=== PATIENT | male | born 1975 | race Two or more races ===

== ENCOUNTER 2016-03-24 19:06 | Emergency (ER) | payer OTHER ==
[2016-03-24 19:29] VITALS: BP 129/79; PULSE 100; TEMP 99.4; BMI 36.1
[2016-03-24] MEDS ORDERED: ALBUTEROL SO4 0.083% IH SOL 2.5 MG/3 ML VIAL.NEB. NEB ONE ×2 (19:58→20:16)
[2016-03-24] MEDS ORDERED: predniSONE 20 MG TABLET (UD) PO ONE (19:58)
[2016-03-24] MEDS ORDERED: AZITHROMYCIN 250 MG TABLET (FP) PO ONE (19:58)
[2016-03-24] MEDS ORDERED: IPRATROPIUM BR 0.02% 0.5 MG/2.5 ML VIAL.NEB. NEB ONE ×2 (19:58→20:17)
--- NOTE | 2016-03-24 20:11 | PDOC ---
History of Present Illness - General History Source: Patient Exam Limitations: No Limitations <Adrián Barrett - Last Filed: 03/24/16 20:11> - General History Source: Patient Exam Limitations: No Limitations - History of Present Illness Initial Comments: 03/24/16 20:18 The patient is a 41 year old male, with a significant past medical history of asthma, who presents to the emergency department with a productive cough for the past week. The patient reports that he is coughing up yellow sputum. He additionally reports episodes of vomiting, which only occur after coughing fits. The patient additionally reports some mild intermittent wheezing. The patient denies fever, chills, sore throat, any recent illnesses, shortness of breath or chest pain. The patient denies any sick contacts or recent travel. Allergies: Penicillins, Fish derived. Past Surgical History: None reported. Social History: Current everyday smoker (10 cigarettes/day). Prior history of polysubstance abuse. On Methadone. PCP: Dr. Renteria <Blanche Reis - Last Filed: 03/24/16 20:20> - General Chief Complaint: Cold Symptoms Stated Complaint: COUGH/HEADACHE Time Seen by Provider: 03/24/16 19:46 Past History - Past Medical History Asthma: Yes Diabetes: No Psychiatric Problems: Yes - Psycho/Social/Smoking Cessation Hx Suicidal Ideation: No Smoking History: Current every day smoker Have you smoked in the past 12 months: Yes Number of Cigarettes Smoked Daily: 10 Information on smoking cessation initiated: No 'Breaking Loose' booklet given: 02/05/15 Hx Alcohol Use: No (no use x > 3yrs) Drug/Substance Use Hx: No (no use x >3 yrs) Substance Use Type: None Hx Substance Use Treatment: Yes <Adrián Barrett - Last Filed: 03/24/16 20:11> <Blanche Reis - Last Filed: 03/24/16 20:20> - Past Medical History Allergies/Adverse Reactions: Allergies Allergy/AdvReac Type Severity Reaction Status Date / Time fish derived Allergy Difficulty Verified 03/24/16 19:19 Breathing Penicillins Allergy Swelling Verified 03/24/16 19:19 Home Medications: Ambulatory Orders Cetirizine HCl [Zyrtec -] 10 mg PO DAILY 02/05/15 Epinephrine (Epipen Jr 0.15MG) [Epipen Jr 0.15MG] 0.3 mg IM ASDIR #2 pens Methadone [Dolophine -] 140 mg PO DAILY 02/05/15 Buspirone HCl [Buspar -] 10 mg PO BID PRN 09/17/15 Albuterol Sulfate Inhaler - [Ventolin HFA Inhaler -] 1 - 2 inh PO Q4H PRN #1 inhaler 03/24/16 Azithromycin 250 mg PO DAILY #4 tablet 03/24/16 Diphenhydramine [Benadryl -] 50 mg PO HS PRN 03/24/16 Prednisone [Deltasone -] 60 mg PO DAILY #12 tablet 03/24/16 Review of Systems - Review of Systems Able to Perform ROS?: Yes Comments:: 03/24/16 20:18 GENERAL/CONSTITUTIONAL: No fever or chills. No weakness. HEAD, EYES, EARS, NOSE AND THROAT: No change in vision. No ear pain or discharge. No sore throat. CARDIOVASCULAR: No chest pain or shortness of breath. RESPIRATORY: +Cough, wheezing. No hemoptysis. GASTROINTESTINAL: +Vomiting. No nausea, diarrhea or constipation. GENITOURINARY: No dysuria, frequency, or change in urination. MUSCULOSKELETAL: No joint or muscle swelling or pain. No neck or back pain. SKIN: No rash. NEUROLOGIC: No headache, vertigo, loss of consciousness, or change in strength/ sensation. ENDOCRINE: No increased thirst. No abnormal weight change. HEMATOLOGIC/LYMPHATIC: No anemia, easy bleeding, or history of blood clots. ALLERGIC/IMMUNOLOGIC: No hives or skin allergy. <Blanche Reis - Last Filed: 03/24/16 20:20> *Physical Exam - Vital Signs Last Vital Signs Temp Pulse Resp BP Pulse Ox 99.4 F 100 H 18 129/79 95 03/24/16 19:22 03/24/16 19:22 03/24/16 19:22 03/24/16 19:22 03/24/16 19:22 <Adrián Barrett - Last Filed: 03/24/16 20:11> - Vital Signs Last Vital Signs Temp Pulse Resp BP Pulse Ox 99.4 F 100 H 18 129/79 95 03/24/16 19:22 03/24/16 19:22 03/24/16 19:22 03/24/16 19:22 03/24/16 19:22 - Physical Exam Comments: 03/24/16 20:18 GENERAL: Awake, alert, and fully oriented, in no acute distress. HEAD: No signs of trauma. EYES: PERRLA, EOMI, sclera anicteric, conjunctiva clear. ENT: Auricles normal inspection, hearing grossly normal, nares patent, oropharynx clear without exudates. Moist mucosa. NECK: Normal ROM, supple, no lymphadenopathy, JVD, or masses. LUNGS: Bilateral faint expiratory wheezing but patient is moving air well and speaking full sentences. Breath sounds equal. No crackles. HEART: Regular rate and rhythm, normal S1 and S2, no murmurs, rubs or gallops. ABDOMEN: Soft, nontender, normoactive bowel sounds. No guarding, no rebound. No masses. EXTREMITIES: Normal range of motion, no edema. No clubbing or cyanosis. No cords , erythema, or tenderness. NEUROLOGICAL: Cranial nerves II through XII grossly intact. Normal speech, normal gait. SKIN: Warm, dry, normal turgor, no rashes or lesions noted. <Blanche Reis - Last Filed: 03/24/16 20:20> Medical Decision Making - Medical Decision Making 03/24/16 20:06 A portion of this note was documented by scribe services under my direction. I have reviewed the details of the note, within reason, and agree with the documentation with the following case summary and management plan written by me. Patient treated in the ED. Nursing notes are reviewed and incorporated into the medical decision-making. Vital signs reviewed. Peripheral IV access obtained by the nurse, laboratory studies are drawn and sent, reviewed and interpreted by myself. Vital Signs Temp Pulse Resp BP Pulse Ox 99.4 F 100 H 18 129/79 95 03/24/16 19:22 03/24/16 19:22 03/24/16 19:22 03/24/16 19:22 03/24/16 19:22 41 year old male c/ hx of asthma, methadone use presents with yellowish productive cough x 10 days. Denies sick contacts or recent travels. Denies sore throats or fevers. Has been intermittently wheezing. Denies chest pain or shortness of breath. Pt is here with mild asthma exacerbation and likely bronchitis. Will give nebs, steroids, and azithromycin and have patient follow up with PMD. Otherwise, the patient is well-appearing and comfortably breathing. I discussed the physical exam findings, ancillary test results and final diagnoses with the patient. I answered all of the patient's questions. The patient was satisfied with the care received and felt comfortable with the discharge plan and treatment plan. The patient will call their primary care physician within 24 hours to arrange follow-up and will return to the Emergency Department with any new, persistant or worsening symptoms. <Adrián Barrett - Last Filed: 03/24/16 20:11> *DC/Admit/Observation/Transfer - Discharge Dispostion Admit: No <Adrián Barrett - Last Filed: 03/24/16 20:11> - Attestations Scribe Attestion: 03/24/16 20:19 Documentation prepared by Blanche Reis, acting as medical assisting instructor for Adrián Barrett MD. <Blanche Reis - Last Filed: 03/24/16 20:20> Diagnosis at time of Disposition: Bronchitis, Asthma attack - Discharge Dispostion Disposition: HOME Condition at time of disposition: Improved - Prescriptions Prescriptions: Azithromycin 250 mg PO DAILY #4 tablet Prednisone [Deltasone -] 60 mg PO DAILY #12 tablet Albuterol Sulfate Inhaler - [Ventolin HFA Inhaler -] 1 - 2 inh PO Q4H PRN #1 inhaler PRN Reason: Wheezing - Referrals Referrals: Marquez Renteria MD [Primary Care Provider] - - Patient Instructions Printed Discharge Instructions: DI for Acute Bronchitis, DI for Asthma -- Adult Additional Instructions: Take 2 puffs of albuterol every 4 hours as needed for wheezing. Take 60 mg prednisone daily for the next 4 days. Take the antibiotics (azithromycin) daily for the next 4 days. It will take several days before you get better. Follow up with your primary care physician.
[2016-03-24] MEDS ORDERED: predniSONE 20 MG TABLET (UD) ONE (20:15)
[2016-03-24] MEDS ORDERED: AZITHROMYCIN 250 MG TABLET (FP) ONE (20:16)
[2016-03-24] MEDS ORDERED: ACETAMINOPHEN 325 MG TABLET (FP) PO ONE (20:44)
[2016-03-24] MEDS ORDERED: ACETAMINOPHEN 325 MG TABLET (FP) ONE (20:45)
== END 2016-03-24 20:47 | disposition home or self-care (01) ==
LOC: JER 19:06
PROC: 3E0F7GC Introduction of Other Therapeutic Substance into Respiratory Tract, Via Natural or Artificial Opening (ICD-10-PCS; principal; 2016-03-24)
DX: J40 Bronchitis, not specified as acute or chronic (principal); J45.901 Unspecified asthma with (acute) exacerbation; F17.210 Nicotine dependence, cigarettes, uncomplicated
CPT/HCPCS: 94640; 99282-25

== ENCOUNTER 2016-12-30 11:26 | Emergency (ER) | payer OTHER ==
[2016-12-30 11:45] VITALS: BP 153/96; PULSE 77; TEMP 99; BMI 32.1
[2016-12-30] MEDS ORDERED: ALBUTEROL SO4 2.5/IPRATROPIUM 0.5 INH SOL 3 ML VIAL.NEB. NEB ONE (12:36)
[2016-12-30] MEDS ORDERED: AZITHROMYCIN 500 MG TABLET PO ONE (12:40)
[2016-12-30] MEDS ORDERED: predniSONE 20 MG TABLET (UD) PO ONE (12:40)
--- NOTE | 2016-12-30 12:40 | PDOC ---
History of Present Illness - General History Source: Patient Exam Limitations: No Limitations - History of Present Illness Initial Comments: 12/30/16 12:44 The patient is a 41 year old male with a significant PMH of acute asthma who presents to the emergency department with worsening shortness of breath, cough, and chest pain beginning approximately 1 week ago. The patient describes the chest pain as pressure-like, as if someone is sitting on his chest. The patient also reports associated wheezing with his cough. He also notes having a reduced appetite over the past week. The patient presents to the ED today as his chest pain and cough are worsening. The patient denies headache and dizziness. Denies fever, chills, nausea, vomit, diarrhea and constipation. Denies dysuria, frequency, urgency and hematuria. Allergies: Penicillins Past surgical history: None reported. Social history: Current everyday smoker. Former alcohol and drug use. PCP: Dr. Burger <Adrián Chau - Last Filed: 12/30/16 12:44> <Milly Ibarra - Last Filed: 12/31/16 16:25> - General Chief Complaint: Chest Pain Stated Complaint: CHEST PAIN Time Seen by Provider: 12/30/16 12:35 Past History <Adrián Chau - Last Filed: 12/30/16 12:44> - Past Medical History Asthma: Yes COPD: No Diabetes: No Psychiatric Problems: Yes (anxiety/ depression) - Immunization History Immunization Up to Date: Yes - Suicide/Smoking/Psychosocial Hx Smoking History: Current every day smoker Have you smoked in the past 12 months: Yes Number of Cigarettes Smoked Daily: 10 Information on smoking cessation initiated: No 'Breaking Loose' booklet given: 02/05/15 Hx Alcohol Use: No Drug/Substance Use Hx: No Substance Use Type: None Hx Substance Use Treatment: Yes <Milly Ibarra - Last Filed: 12/31/16 16:25> - Past Medical History Allergies/Adverse Reactions: Allergies Allergy/AdvReac Type Severity Reaction Status Date / Time fish derived Allergy Difficulty Verified 12/30/16 11:40 Breathing Penicillins Allergy Swelling Verified 12/30/16 11:40 Home Medications: Ambulatory Orders Cetirizine HCl [Zyrtec -] 10 mg PO DAILY 02/05/15 Epinephrine (Epipen Jr 0.15MG) [Epipen Jr 0.15MG] 0.3 mg IM ASDIR #2 pens Methadone [Dolophine -] 140 mg PO DAILY 02/05/15 Buspirone HCl [Buspar -] 10 mg PO BID PRN 09/17/15 Diphenhydramine [Benadryl -] 50 mg PO HS PRN 03/24/16 Albuterol Sulfate Inhaler - [Ventolin HFA Inhaler -] 1 - 2 inh PO Q4H PRN #1 inhaler 12/30/16 Azithromycin [Zithromax 250mg Tablets -] 250 mg PO UTDICT #6 tab 12/30/16 Guaifenesin AC [Robitussin AC -] 5 ml PO QID PRN #60 ml MDD 20 mL 12/30/16 Prednisone [Deltasone -] 40 mg PO DAILY #8 tablet 12/30/16 Review of Systems - Review of Systems Able to Perform ROS?: Yes Comments:: 12/30/16 12:44 GENERAL/CONSTITUTIONAL: No fever or chills. No weakness. HEAD, EYES, EARS, NOSE AND THROAT: No change in vision. No ear pain or discharge. No sore throat. CARDIOVASCULAR: (+) Chest pain. (+) Shortness of breath. RESPIRATORY: (+) Cough. (+) Wheezing. No hemoptysis. GASTROINTESTINAL: No nausea, vomiting, diarrhea or constipation. GENITOURINARY: No dysuria, frequency, or change in urination. MUSCULOSKELETAL: No joint or muscle swelling or pain. No neck or back pain. SKIN: No rash NEUROLOGIC: No headache, vertigo, loss of consciousness, or change in strength/ sensation. ENDOCRINE: No increased thirst. No abnormal weight change. HEMATOLOGIC/LYMPHATIC: No anemia, easy bleeding, or history of blood clots. ALLERGIC/IMMUNOLOGIC: No hives or skin allergy. <Adrián Chau - Last Filed: 12/30/16 12:44> *Physical Exam - Vital Signs Last Vital Signs Temp Pulse Resp BP Pulse Ox 99.0 F 77 16 153/96 94 L 12/30/16 11:41 12/30/16 11:41 12/30/16 11:41 12/30/16 11:41 12/30/16 11:41 <Adrián Chau - Last Filed: 12/30/16 12:44> - Vital Signs Last Vital Signs Temp Pulse Resp BP Pulse Ox 99.0 F 77 16 153/96 94 L 12/30/16 11:41 12/30/16 11:41 12/30/16 11:41 12/30/16 11:41 12/30/16 11:41 - Physical Exam Comments: GENERAL: Awake, alert, and fully oriented, in no acute distress HEAD: No signs of trauma EYES: PERRLA, EOMI, sclera anicteric, conjunctiva clear ENT: Auricles normal inspection, hearing grossly normal, nares patent, oropharynx clear without exudates. Moist mucosa NECK: Normal ROM, supple, no lymphadenopathy, JVD, or masses LUNGS: Good air entry B/L, +scattered exp wheezes with prolonged expiratory phase. Intermittent loose, hacking cough. HEART: Regular rate and rhythm, normal S1 and S2, no murmurs, rubs or gallops ABDOMEN: Soft, nontender, normoactive bowel sounds. No guarding, no rebound. No masses EXTREMITIES: Normal range of motion, no edema. No clubbing or cyanosis. No cords, erythema, or tenderness NEUROLOGICAL: Cranial nerves II through XII grossly intact. Normal speech, normal gait SKIN: Warm, Dry, normal turgor, no rashes or lesions noted. <Milly Ibarra - Last Filed: 12/31/16 16:25> Medical Decision Making - Medical Decision Making Pt improved with nebs, steroids. As he is an active smoker, will treat for bronchitis with a course of abx. Stable for DC home. <Milly Ibarra - Last Filed: 12/31/16 16:25> *DC/Admit/Observation/Transfer - Attestations Scribe Attestion: 12/30/16 12:44 Documentation prepared by Adrián Chau, acting as medical billing assistant for Milly Ibarra MD. <Adrián Chau - Last Filed: 12/30/16 12:44> - Discharge Dispostion Admit: No <Milly Ibarra - Last Filed: 12/31/16 16:25> Diagnosis at time of Disposition: Bronchitis - Discharge Dispostion Disposition: HOME Condition at time of disposition: Stable - Prescriptions Prescriptions: Albuterol Sulfate Inhaler - [Ventolin HFA Inhaler -] 1 - 2 inh PO Q4H PRN #1 inhaler PRN Reason: Wheezing Azithromycin [Zithromax 250mg Tablets -] 250 mg PO UTDICT #6 tab Guaifenesin AC [Robitussin AC -] 5 ml PO QID PRN #60 ml MDD 20 mL PRN Reason: Cough Prednisone [Deltasone -] 40 mg PO DAILY #8 tablet - Referrals Referrals: Aleyda Desai MD [Primary Care Provider] - - Patient Instructions Printed Discharge Instructions: DI for Asthma -- Adult, DI for Acute Bronchitis - Post Discharge Activity
[2016-12-30] MEDS ORDERED: guaiFENesin/CODEINE 10 ML UNIT-DOSE CUPS PO ONE (12:41)
[2016-12-30] MEDS ORDERED: predniSONE 20 MG TABLET (UD) ONE (12:43)
[2016-12-30] MEDS ORDERED: guaiFENesin/CODEINE 5 ML UNIT-DOSE CUPS PO ONE (12:43)
[2016-12-30] MEDS ORDERED: AZITHROMYCIN 500 MG TABLET ONE (12:44)
[2016-12-30] MEDS: ALBUTEROL SO4 2.5/IPRATROPIUM 0.5 INH SOL 3 ML VIAL.NEB. NEB SCH ×2 (13:01→13:15)
[2016-12-30] MEDS ORDERED: ALBUTEROL SO4 0.083% IH SOL 2.5 MG/3 ML VIAL.NEB. NEB ONE (13:07)
--- NOTE | 2017-01-01 14:44 | EKG ---
Test Reason : Blood Pressure : / mmHG Vent. Rate : 083 BPM Atrial Rate : 083 BPM P-R Int : 154 ms QRS Dur : 090 ms QT Int : 406 ms P-R-T Axes : 056 031 064 degrees QTc Int : 477 ms NORMAL SINUS RHYTHM NORMAL ECG NO PREVIOUS ECGS AVAILABLE Confirmed by CECELIA GOLDEN MD ([id number]) on 01/01/2017 2:44:24 PM Referred By: Confirmed By:CECELIA GOLDEN MD
== END 2016-12-30 14:30 | disposition home or self-care (01) ==
LOC: JER 11:26
PROC: 3E0F7GC Introduction of Other Therapeutic Substance into Respiratory Tract, Via Natural or Artificial Opening (ICD-10-PCS; principal; 2016-12-30)
DX: J20.9 Acute bronchitis, unspecified (principal)
CPT/HCPCS: 71010-TC; 93005; 93010; 94640; 99282-25

== ENCOUNTER 2017-09-10 14:01 | Emergency (ER) | payer OTHER ==
[2017-09-10 14:29] VITALS: BP 133/86; PULSE 91; TEMP 98.9; BMI 32.1
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
[2017-09-10] MEDS ORDERED: KETOROLAC TROMETHAMINE 60 MG/2 ML VIAL IM ONE (15:16)
[2017-09-10] MEDS ORDERED: KETOROLAC TROMETHAMINE 60 MG/2 ML VIAL ONE (15:18)
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
== END 2017-09-10 17:59 | disposition home or self-care (01) ==
LOC: JERFT 14:01
PROC: 3E0233Z Introduction of Anti-inflammatory into Muscle, Percutaneous Approach (ICD-10-PCS; principal; 2017-09-10)
DX: S63.502A Unspecified sprain of left wrist, initial encounter (principal); V43.52XA Car driver injured in collision with other type car in traffic accident, initial encounter; Y93.89 Activity, other specified; Y92.410 Unspecified street and highway as the place of occurrence of the external cause; S63.501A Unspecified sprain of right wrist, initial encounter
CPT/HCPCS: 70450-TC; 71046-TC-FY; 71101-TC-FY; 72125-TC; 73090-TC-LT-FY; 73090-TC-RT-FY; 73110-TC-LR-FY; 73110-TC-RT-FY; 99281-25

== ENCOUNTER → 2018-10-01 | Outpatient (CLI) | payer OTHER | LOC: YHH 15:23 ==